=== PATIENT | female | born 1995 | race Caucasian/White ===

== ENCOUNTER 2020-06-28 | Inpatient (IN) ==
[2020-06-28] MEDS ORDERED: Famotidine 20 MG/2 ML VIAL IVP PRN (06:28)
[2020-06-28] MEDS ORDERED: *HR* Nalbuphine 10 MG/ML AMPUL IV PRN (06:28)
[2020-06-28] MEDS ORDERED: Naloxone 0.4 MG/ML INJ IVP PRN (06:28)
[2020-06-28] MEDS ORDERED: Ondansetron 4 MG/2 ML VIAL IVP PRN (06:28)
[2020-06-28] MEDS ORDERED: Lidocaine 1% 20 ML MDV INFILT PRN (06:28)
[2020-06-28] MEDS ORDERED: Metoclopramide 10 MG/2 ML VIAL IVP PRN (06:28)
[2020-06-28] MEDS ORDERED: Ringers Solution, Lactated 1,000 ML IVC SCH (06:30)
[2020-06-28] MEDS ORDERED: Oxytocin 20 units/ LR 1000 mL 20 UNIT/1,000 ML BAG IVC SCH ×2 (06:30→20:39)
[2020-06-28 07:05] LABS: Basophils % 0.3 %; Hemoglobin 12.3 g/dL (11.5-15.4); Immature Granulocytes % 0.4 % (0-4); Mean Platelet Volume 12.5 fL (9.4-12.4); Red Cell Distribution Width 13.4 % (11.5-14.5)
[2020-06-28 07:07] LABS: Eosinophils # 0.1 K/mcL (0.0-0.6); Eosinophils % 1.4 %; Hematocrit 36.9 % (35.3-44.9); Immature Platelets 16.2 % (1.1-6.1); Lymphocytes # 2.1 K/mcL (0.6-4.6); Lymphocytes % 27.5 %; Mean Corpuscular HGB Conc 33.3 g/dL (31.6-35.5); Mean Corpuscular Hemoglobin 28.5 pg (28.0-33.3); Mean Corpuscular Volume 85.6 fL (83.0-100.0); Monocytes # 0.5 K/mcL (0.0-1.3); Monocytes % 6.6 %; Neutrophils # 4.9 K/mcL (1.6-8.9); Platelet Count 124 K/mcL (140-400); Red Blood Count 4.31 M/mcL (3.82-4.97); Segmented Neutrophils % 63.8 %; White Blood Count 7.7 K/mcL (4.3-11.1)
[2020-06-28 07:54] LABS: Influenza A PCR Negative (Negative); Influenza B PCR Negative (Negative); Resp. Syncytial Virus PCR Negative (Negative); SARS-CoV-2 by PCR (In House) Negative (Negative)
[2020-06-28] MEDS ORDERED: EPHEDrine 50 MG/ML VIAL IVP PRN (08:25)
[2020-06-28] MEDS ORDERED: Epidural Premix (fent/bupiv) 110 ML EP SCH (08:30)
[2020-06-28 12:36] LABS: Amphetamine Screen,Urine Negative ng/mL (Cutoff=1000); Barbiturate Screen,Urine Negative ng/mL (Cutoff=200); Benzodiazepines Screen,Urine Negative ng/mL (Cutoff=200); Cannabinoid Screen,Urine Negative ng/mL (Cutoff = 50); Cocaine Screen,Urine Negative ng/mL (Cutoff= 300); Opiate Screen,Urine Negative ng/mL (Cutoff=300); Phencyclidine Screen,Urine Negative ng/mL (Cutoff=25)
[2020-06-28] MEDS ORDERED: Acetaminophen 325 MG TABLET PO ONE (14:54)
[2020-06-28] MEDS ORDERED: Ropivacaine/PF 0.2% 20 ML VIAL ONE (16:30)
[2020-06-28] MEDS ORDERED: *HR* FentaNYL (PF) 100 MCG/2 ML VIAL ONE (16:30)
[2020-06-28] MEDS ORDERED: Benzocaine/Menthol 56 GM AEROSOL SPRAY TP PRN (20:39)
[2020-06-28] MEDS ORDERED: Lanolin 7 G OINT...G. TP PRN (20:39)
[2020-06-28] MEDS: Ibuprofen 600 MG TABLET PO PRN (21:06)
[2020-06-29 05:12] LABS: Basophils % 0.3 %; Eosinophils # 0.1 K/mcL (0.0-0.6); Eosinophils % 0.9 %; Hematocrit 34.4 % (35.3-44.9); Hemoglobin 11.4 g/dL (11.5-15.4); Immature Granulocytes % 0.4 % (0-4); Lymphocytes # 2.1 K/mcL (0.6-4.6); Mean Corpuscular HGB Conc 33.1 g/dL (31.6-35.5); Mean Corpuscular Hemoglobin 28.6 pg (28.0-33.3); Mean Corpuscular Volume 86.2 fL (83.0-100.0); Mean Platelet Volume 11.6 fL (9.4-12.4); Monocytes # 0.7 K/mcL (0.0-1.3); Neutrophils # 7.3 K/mcL (1.6-8.9); Platelet Count 141 K/mcL (140-400); Red Blood Count 3.99 M/mcL (3.82-4.97); Red Cell Distribution Width 13.3 % (11.5-14.5); Segmented Neutrophils % 71.4 %; White Blood Count 10.3 K/mcL (4.3-11.1)
[2020-06-29] MEDS: Ibuprofen 600 MG TABLET PO PRN ×2 (06:45→15:21)
[2020-06-29] MEDS: Acetaminophen 325 MG TABLET PO PRN ×2 (08:26→15:21)
[2020-06-29 08:31] VITALS: BP 112/73
[2020-06-29] MEDS ORDERED: Prenatal Vit/FA 1 EACH TABLET PO SCH (09:00)
== END 2020-06-29 18:32 | disposition home or self-care (01) | DRG 560 ==
LOC: 1NENULAB 06:07 → 1NENUOBS 21:37
PROVIDERS: ADMIT Student in an Organized Health Care Education/Training Program; ATTEND Student in an Organized Health Care Education/Training Program